=== PATIENT | female | born 1965 | race Caucasian/White ===

== ENCOUNTER 2018-09-18 09:30 | Outpatient (CLI) | payer BC ==
[~2018-09-18] VITALS: Ht 157.5 cm; Wt 60.3 kg
[2018-09-18] MEDS ORDERED: TURM538C PO (10:00)
[2018-09-18] MEDS ORDERED: RANI150T46 PO (10:00)
== END 2018-09-18 10:09 | disposition home or self-care (01) ==
LOC: PREOP 09:30
PROVIDERS: ATTEND Surgery
DX: Z01.818 Encounter for other preprocedural examination (principal)

== ENCOUNTER 2018-09-20 09:44 | Day surgery (SDC) | payer BC, OTHER ==
[~2018-09-20] VITALS: Ht 157.5 cm; Wt 60.3 kg
[~2018-09-20 09:44] MED LIST: RANI150T46 PO; TURM538C PO
--- NOTE | 2018-09-20 09:54 | Progress Note-Pre Operative ---
Pre-Operative Progress Note H&P Reviewed The H&P was reviewed, patient examined and no changes noted. Date Seen by Provider: Sep 20, 2018 Time Seen by Provider: 09:50 Date H&P Reviewed: Sep 20, 2018 Time H&P Reviewed: 09:50 Pre-Operative Diagnosis: chronic abd pain GALILEO CLARK MD Sep 20, 2018 09:54
[2018-09-20] MEDS ORDERED: HYDR-34 PO (09:56)
--- NOTE | 2018-09-20 09:57 | Discharge Inst-Surgical ---
D/C Lap Instructions-EDUARDO New, Converted, or Re-Newed RX: RX on Chart Follow Up Appt in 2 weeks Activity as tolerated No driving for 24 hours No driving while on pain medications Incentive Spirometry use every 2 hours while awake Regular Diet Symptoms to Report: Fever over 101 degree F, Nausea/Vomiting Infection Signs and Symptoms to report: Increased redness, Foul odor of wound, Increased drainage Bathing instructions: May shower Operative Area Clean/Dry; Keep incision clean/dry If any problems/questions: Contact your physician or go to Emergency Room GALILEO CLARK MD Sep 20, 2018 09:57
[2018-09-20 10:00] VITALS: BP 113/71
[2018-09-20] MEDS ORDERED: ACETAMINOPHEN 325 MG TABLET PO PRN (10:00)
[2018-09-20] MEDS ORDERED: ONDANSETRON 4 MG/2 ML (SDV) Z0FRAN IVP PRN ×2 (10:00→13:30)
[2018-09-20] MEDS ORDERED: ceFAZolin INJECTION 1,000 MG in WATER (STERILE) FOR INJECTION 10 ML IV ONE (10:00)
[2018-09-20] MEDS ORDERED: BUP/EPI 0.5% 1:200,000 (SENSORCAINE) 30 ML VIAL ONE (10:05)
[2018-09-20] MEDS ORDERED: proPOfol 200 MG/20 ML (DIPRIVAN) VIAL IV ONE (10:24)
[2018-09-20] MEDS ORDERED: SEVOFLURANE (ULTANE) 15 ML INHAL SOLN ONE ×2 (10:24→13:13)
[2018-09-20] MEDS ORDERED: MIDAZOLAM 2 MG/2 ML (VERSED) VIAL ONE (10:24)
[2018-09-20] MEDS ORDERED: ROCURONIUM 10 MG/ML 5 ML SYRINGE IV ONE (10:24)
[2018-09-20] MEDS ORDERED: LIDOCAINE PF 2% 5 ML (XYLOCAINE) VIAL ONE (10:24)
[2018-09-20] MEDS ORDERED: fentaNYL INJECTION 100 MCG/2 ML AMP ONE (10:25)
[2018-09-20] MEDS ORDERED: DEXAMETHASONE 10 MG/ML (DECADRON) 1 ML VIAL ONE (10:28)
[2018-09-20] MEDS ORDERED: ONDANSETRON 4 MG/2 ML (SDV) Z0FRAN ONE (10:28)
[2018-09-20] MEDS: LACTATED RINGERS 1,000 ML IV PRN ×3 (10:30→21:51)
[2018-09-20 10:41] LABS: BASOPHILS % (AUTO) 0 % (0-10); EOSINOPHILS # (AUTO) 0.3 10^3/uL (0.0-0.3); EOSINOPHILS % (AUTO) 3 % (0-10); HEMATOCRIT 43 % (35-52); HEMOGLOBIN 14.5 G/DL (11.5-16.0); LYMPHOCYTES # (AUTO) 2.4 X 10^3 (1.0-4.0); LYMPHOCYTES % (AUTO) 28 % (12-44); MEAN CORPUSCULAR HEMOGLOBIN 33 PG (25-34); MEAN CORPUSCULAR HGB CONC 34 G/DL (32-36); MEAN CORPUSCULAR VOLUME 98 FL (80-99); MONOCYTES # (AUTO) 0.5 X 10^3 (0.0-1.0); MONOCYTES % (AUTO) 6 % (0-12); NEUTROPHILS # (AUTO) 5.3 X 10^3 (1.8-7.8); NEUTROPHILS % (AUTO) 63 % (42-75); PLATELET COUNT 231 10^3/uL (130-400); RED CELL DISTRIBUTION WIDTH 13.9 % (10.0-14.5); WHITE BLOOD COUNT 8.5 10^3/uL (4.3-11.0)
[2018-09-20] MEDS ORDERED: OMG1KC PO (10:50)
[2018-09-20] MEDS ORDERED: cbd oil (10:50)
[2018-09-20] MEDS ORDERED: NEOSTIGMINE 1 MG/ML 5 ML SYRINGE ONE (13:06)
[2018-09-20] MEDS ORDERED: GLYCOPYRROLATE 0.2 MG/ML (ROBINUL) 2 ML VIAL ONE (13:06)
--- NOTE | 2018-09-20 13:23 | Progress Note-Post Operative ---
Post-Operative Progess Note Surgeon (s)/Pneumatic System Conveyor Operator (s) Surgeon GALILEO CLARK MD Pneumatic System Conveyor Operator: corby garcia SALES AND SERVICE SPECIALIST Pre-Operative Diagnosis chronic abd pain Post-Operative Diagnosis dense intraabdominal adhesions omentum, right and left colon, pelvis, right iliac vein tear. Procedure & Operative Findings Date of Procedure 09/20/18 Procedure Performed/Findings diagnostic laparoscopy, lysis of adhesion(120 minutes), right iliac venorrhaphy. Anesthesia Type GET Estimated Blood Loss Estimated blood loss (mL): 1200ml Specimens/Packing Specimens Removed none GALILEO CLARK MD Sep 20, 2018 13:23
[2018-09-20] MEDS ORDERED: MEPERIDINE (DEMEROL) INJ 50 MG/ML IVP ONE (13:30)
[2018-09-20] MEDS ORDERED: fentaNYL INJECTION 100 MCG/2 ML AMP IVP ONE (13:30)
[2018-09-20] MEDS ORDERED: morphine INJ 10 MG/ML 1ML (SYR OR VIAL) IVP ONE (13:30)
[2018-09-20 13:48] LABS: BASOPHILS # (AUTO) 0.1 10^3/uL (0.0-0.1); BASOPHILS % (AUTO) 1 % (0-10); EOSINOPHILS # (AUTO) 0.3 10^3/uL (0.0-0.3); EOSINOPHILS % (AUTO) 3 % (0-10); HEMATOCRIT 28 % (35-52); HEMOGLOBIN 9.2 G/DL (11.5-16.0); LYMPHOCYTES # (AUTO) 2.2 X 10^3 (1.0-4.0); LYMPHOCYTES % (AUTO) 23 % (12-44); MEAN CORPUSCULAR HEMOGLOBIN 33 PG (25-34); MEAN CORPUSCULAR HGB CONC 32 G/DL (32-36); MEAN CORPUSCULAR VOLUME 100 FL (80-99); MEAN PLATELET VOLUME 10.5 FL (7.4-10.4); MONOCYTES # (AUTO) 0.4 X 10^3 (0.0-1.0); MONOCYTES % (AUTO) 4 % (0-12); NEUTROPHILS # (AUTO) 6.9 X 10^3 (1.8-7.8); NEUTROPHILS % (AUTO) 70 % (42-75); PLATELET COUNT 207 10^3/uL (130-400); RED CELL DISTRIBUTION WIDTH 13.6 % (10.0-14.5); WHITE BLOOD COUNT 9.8 10^3/uL (4.3-11.0)
[2018-09-20 16:00] VITALS: BP 113/79
[2018-09-20] MEDS: morphine INJ 10 MG/ML 1ML (SYR OR VIAL) IVP PRN ×2 (17:01→20:03)
--- NOTE | 2018-09-20 17:09 | OPERATIVE REPORT ---
DATE OF SERVICE: 09/20/2018 ATTENDING PRIMARY CARE PHYSICIAN: Dr. Baires. PREOPERATIVE DIAGNOSIS: Chronic persistent pelvic pain. POSTOPERATIVE DIAGNOSES: Dense adhesions of the omentum, cecum and ascending colon as well as sigmoid colon. PROCEDURE: Diagnostic laparoscopy, lysis of adhesions, which took greater than 120 minutes right iliac vein repair. SURGEON: Lauren Boogie MD REMOTE SENSING TECHNOLOGIST: Dirk Mays APRN ANESTHESIA: General endotracheal. ESTIMATED BLOOD LOSS: 1200 mL. FINDINGS: Dense adhesions throughout the entirety of the abdomen and pelvis from a large 25 x 20 cm mesh placed in 2008 for recurrent hernia. Lysis of adhesions encompass the greater omentum as well as the right and left colon and pelvis. Bleeding was encountered, which was after identification was the iliac vein, which was repaired with a running suture. DISPOSITION: The patient tolerated the procedure well. INDICATIONS: The patient is a 53-year-old female, who was referred over to us for crampy abdominal pain. She has had multiple surgeries in the past and has a midline incision from a hysterectomy in 1988 and a completion oophorectomy in 2004. In 06/2008, she was found to have a symptomatic incisional hernia and underwent a laparoscopic incisional hernia repair with a large 25 x 20 nylon mesh. She is also status post laparoscopic adjustable gastric band placement in 08/2009. She has had crampy pain in the lower abdominal quadrants as well as the pelvic region. Pelvic x-ray did show multiple metal clips consistent with tacks placed to hold the mesh in place. She is eating well and for the most part having normal bowel movements; however, does have intermittent pain, which moves in the pelvis as well as upon ambulation, most likely due to intraabdominal adhesions. DESCRIPTION OF PROCEDURE: The patient was brought to the operating room, laid supine on the table. After adequate IV pain and sedative medications and general endotracheal intubation, abdomen was prepped and draped in standard surgical fashion. A 0.5% Marcaine with epinephrine was used to anesthetize the overlying skin in the left upper abdominal quadrant and a transverse skin incision was made using 15 blade. An 0 silk suture was applied to the medial aspect of the incision for traction and a Veress needle was inserted with a low opening pressure of 0 mmHg. The abdomen was then insufflated to 15 mmHg pressure. The Veress needle was removed and a 5 mm Xcel trocar was placed followed by a 5 mm 45-degree angle laparoscope visualizing the peritoneal cavity. A 4-quadrant abdominal exploration was performed. There were dense adhesions from the previous mesh repair, which encompassed majority of the mid abdomen as well as pelvis. The band tubing from the laparoscopic adjustable gastric band was intact. We then proceeded to place two 5 mm right upper abdominal quadrant ports under direct visualization after the skin and peritoneal lining were anesthetized using 0.5% Marcaine with epinephrine and a transverse skin incision was made using 15 blade. We then proceeded with meticulous dissection of the adhesive tissue to the adherent intraabdominal adhesions to the mesh, which encompassed the greater omentum as well as the cecum and right colon as well as the sigmoid colon and descending colon. We proceeded with lysis of adhesions to the pelvis. The estimated time of lysis of adhesions was approximately 120 minutes. During our dissection in the right pelvis, a tear was identified of the iliac vein. This was suture repaired using a 2-0 Surgidac in a running suture using an EndoStitch. Good hemostasis was observed. The right pelvis was then covered with Tisseel fibrin glue with visualization of good hemostasis. A 19-[place] Sudhir-Yates drain was placed into the pelvis. This was brought out through the left upper abdominal quadrant 5 mm port. The drain was sutured to the skin using 3-0 nylon interrupted suture. A 10 mm port site was placed infraumbilically for the EndoStitch device. The fascia and peritoneum to this opening was then closed using 0 Vicryl interrupted suture. The abdomen was desufflated and remaining ports were removed. All skin incisions were closed using 4-0 Monocryl running subcuticular sutures. Wounds were then cleaned and covered with Dermabond. The patient tolerated the procedure well. We will admit for 23-hour observation. More than likely, she will have significant discomfort from the lysis of adhesions as well as because of approximately 1200 mL of blood loss, we will continue to monitor her hemodynamic status. Job ID: [id number] DocumentID: [id number] Dictated Date: 09/20/2018 13:17:50 Solder Technician Date: 09/20/2018 17:08:18 Dictated By: MD DARLINE MATUTE
[2018-09-20 20:00] VITALS: BP 133/81
[2018-09-21 00:23] VITALS: BP 127/70
[2018-09-21] MEDS: morphine INJ 10 MG/ML 1ML (SYR OR VIAL) IVP PRN (00:51)
[2018-09-21 04:00] VITALS: BP 125/57
[2018-09-21 07:14] LABS: HEMOGLOBIN 9.2 G/DL (11.5-16.0); MEAN PLATELET VOLUME 9.9 FL (7.4-10.4); RED CELL DISTRIBUTION WIDTH 13.3 % (10.0-14.5); WHITE BLOOD COUNT 13.2 10^3/uL (4.3-11.0)
[2018-09-21 07:27] LABS: BUN/CREATININE RATIO 13; CALCIUM 8.9 MG/DL (8.5-10.1); CARBON DIOXIDE 23 MMOL/L (21-32); CHLORIDE 102 MMOL/L (98-107); CREATININE SERUM 0.78 MG/DL (0.60-1.30); GFR ESTIMATED > 60; GLUCOSE 108 MG/DL (70-105); POTASSIUM 4.3 MMOL/L (3.6-5.0); SODIUM 137 MMOL/L (135-145)
[2018-09-21 08:00] VITALS: BP 124/75
[2018-09-21] MEDS: oxyCODONE/APAP 5/325MG (PERCOCET 5) TABLET PO PRN ×3 (08:16→16:31)
--- NOTE | 2018-09-21 08:18 | Anesthesia-General Post-Op ---
General Patient Condition Mental Status/LOC: Same as Preop Cardiovascular: Satisfactory Nausea/Vomiting: Absent Respiratory: Satisfactory Pain: Controlled Complications: Absent Post Op Complications Complications None Follow Up Care/Instructions Patient Instructions None needed. Anesthesia/Patient Condition Patient Condition Patient is doing well, no complaints, stable vital signs, no apparent adverse anesthesia problems. No complications reported per nursing. HECTOR TA CRNA Sep 21, 2018 08:18
--- NOTE | 2018-09-21 09:06 | NUR ---
Patient up in halls walking with SAGAR Curiel at this time. Patient tolerated well using a walking. Sands cath cont to have clear straw colored urine. This RN will cont to monitor this patient throughout the remainder of this shift.
[2018-09-21 12:00] VITALS: BP 105/65
--- NOTE | 2018-09-21 16:34 | Progress Note (SOAP) ---
Subjective Date Seen by a Provider: Sep 21, 2018 Time Seen by a Provider: 14:00 Subjective/Events-last exam doing well. has some right lower extremity edema(+1/3), negative homans sign, palpable femoral artery. abdominal pain controlled. tolerating diet. KHADAR mild serosanguinous and clotted dark blood. Objective Exam Vital Signs Date Time Temp Pulse Resp B/P (MAP) Pulse Ox O2 Delivery O2 Flow Rate FiO2 09/21/18 12:00 100.2 70 18 105/65 (78) 97 Nasal Cannula 2.00 09/21/18 09:50 Nasal Cannula 2.00 09/21/18 08:00 99.4 65 18 124/75 (91) 98 Nasal Cannula 2.00 09/21/18 04:00 97.3 78 16 125/57 (79) 95 Nasal Cannula 2.00 09/21/18 00:23 97.6 71 16 127/70 (89) 98 Nasal Cannula 2.00 09/20/18 21:00 Nasal Cannula 2.00 09/20/18 20:48 Nasal Cannula 2.00 09/20/18 20:00 99.0 67 18 133/81 (98) 100 Nasal Cannula 2.00 I & O 09/21/18 07:00 Intake Total 3530 ml Output Total 1560 ml Balance 1970 ml Capillary Refill : Greater Than 3 Seconds General Appearance: No Apparent Distress HEENT: PERRL/EOMI Neck: Full Range of Motion Respiratory: Chest Non Tender, Lungs Clear, Normal Breath Sounds Cardiovascular: Regular Rate, Rhythm Peripheral Pulses: 2+ Femoral (R), 2+ Femoral (L) Gastrointestinal: soft, tenderness, other (incisions clean/dry) Extremity: Normal Capillary Refill, Swelling, Other (pain medial right thigh) Neurologic/Psychiatric: Alert, Oriented x3 Skin: Normal Color Lymphatic: No Adenopathy Results Lab Laboratory Tests 09/21/18 07:10: White Blood Count 13.2H, Red Blood Count 2.84L, Hemoglobin 9.2L, Hematocrit 28L , Mean Corpuscular Volume 99, Mean Corpuscular Hemoglobin 32, Mean Corpuscular Hemoglobin Concent 33, Red Cell Distribution Width 13.3, Platelet Count 174, Mean Platelet Volume 9.9, Sodium Level 137, Potassium Level 4.3, Chloride Level 102, Carbon Dioxide Level 23, Anion Gap 12, Blood Urea Nitrogen 10, Creatinine 0.78, Estimat Glomerular Filtration Rate > 60, BUN/Creatinine Ratio 13, Glucose Level 108H, Calcium Level 8.9 Microbiology 09/20/18 MRSA Screen - Final, Complete MRSA not isolated Assessment/Plan Assessment/Plan Assess & Plan/Chief Complaint s/p dx laparoscopy, extensive WENDI, right iliac venorrhaphy, blood loss anemia. doing ok. good arterial pulse right leg with improvement swelling/venous return. condition explained patient. will need compression dressing forefoot to high thigh and elevation. continue KHADAR drain at home to monitor. f/u 1 week. GALILEO CLARK MD Sep 21, 2018 16:34
[2018-09-21 16:50] VITALS: BP 149/80
[2018-09-21 17:30] VITALS: BP 149/80
== END 2018-09-21 17:30 | disposition home or self-care (01) ==
LOC: SDC 09:44 → 4TH 16:00 → SDC 09-21 17:30
PROVIDERS: ATTEND Surgery
DX: N99.4 Postprocedural pelvic peritoneal adhesions (principal); I97.52 Accidental puncture and laceration of a circulatory system organ or structure during other procedure; D62 Acute posthemorrhagic anemia; R60.0 Localized edema; J45.909 Unspecified asthma, uncomplicated; F17.210 Nicotine dependence, cigarettes, uncomplicated; M79.7 Fibromyalgia; M19.91 Primary osteoarthritis, unspecified site; K27.9 Peptic ulcer, site unspecified, unspecified as acute or chronic, without hemorrhage or perforation; Z79.899 Other long term (current) drug therapy; Z98.84 Bariatric surgery status
CPT/HCPCS: 36415; 80048; 85025; 85027; 86850; 86900; 86901; 86920; 87081; 94664